=== PATIENT | male | born 1970 | race Caucasian/White ===

== ENCOUNTER 2020-03-28 20:41 | Day surgery (SDC) | payer BC ==
[~2020-03-28] VITALS: Ht 170.2 cm; Wt 88.0 kg
[2020-03-28] MEDS ORDERED: SODIUM CHLORIDE 0.9% 1000ML 1,000 ML IV STA ×2 (21:33→21:37)
--- NOTE | 2020-03-28 21:37 | Emergency Department Note ---
History of Present Illnes History of Present Illness Chief Complaint: General Medicine Complaints History of Present Illness This is a 49 year old male 2 day h/o exhaustion and fevers . Denies CP, cough, SOB. Patient with myalgias that started 03/26/20 and was treated for "heat exhaustion". Per family , patient experienced low grade fevers and since seeing PCP earlier in the week, patient continued to experience malaise. Sent by Dr Cheryl Spann for evaluation of possible "sepsis". Historian: Patient, Family Member Arrival Mode: [employer] Required: No Onset (how long ago): day(s) (3) Location: diffuse myalgias Radiation: Reports non-radiation Severity: moderate Onset quality: gradual Duration (how long): day(s) (3) Timing of current episode: constant Progression: worsening Chronicity: new Context: Reports recent illness Relieving factors: none Exacerbating factors: none Associated symptoms: Reports fever/chills, Reports malaise, Reports weakness Treatments prior to arrival: none Past Medical/Family History Physician Review I have reviewed the patient's past medical and family history. Any updates have been documented here. Past Medical History Recent Fever: No Clinical Suspicion of Infectio: No New/Unexplained Change in Ment: No Past Medical History: None Past Surgical History: None Social History Smoking Cessation: Never Smoker Alcohol Use: None Any Illegal Drug Use: No Review of Systems Review of Systems Constitutional: Reports fever, Reports malaise, Reports weakness EENTM: Reports no symptoms Cardiovascular: Reports no symptoms Respiratory: Reports no symptoms Gastrointestinal: Reports no symptoms Genitourinary: Reports no symptoms Musculoskeletal: Reports muscle pain Integumentary: Reports no symptoms Neurological: Reports no symptoms Psychological: Reports no symptoms Endocrine: Reports no symptoms Hematological/Lymphatic: Reports no symptoms Review of other systems All other systems reviewed and negative. Physical Exam Related Data Allergies: Coded Allergies: iodine (Verified Allergy, Unknown, 03/28/20) Uncoded Allergies: DYE (Allergy, Unknown, 03/28/20) Triage Vital Signs Vital Signs Date Time Temp Pulse Resp B/P (MAP) Pulse Ox O2 Delivery O2 Flow Rate FiO2 03/28/20 21:33 99.0 96 20 106/74 97 Vital signs reviewed: Yes Physical Exam CONSTITUTIONAL Constitutional: Reports well-developed, Reports well-nourished HENT HENT: Reports normocephalic, Reports atraumatic, Reports oropharynx clear/moist, Reports nose normal HENT L/R: Reports left ext ear normal, Reports right ext ear normal EYES Eyes: Reports PERRL, Reports conjunctivae normal NECK Neck: Reports ROM normal PULMONARY Pulmonary: Reports effort normal, Reports breath sounds normal CARDIOVASCULAR Cardiovascular: Reports regular rhythm, Reports heart sounds normal, Reports capillary refill normal, Reports normal rate GASTROINTESTINAL Abdominal: Reports soft, Reports nontender, Reports bowel sounds normal GENITOURINARY Genitourinary: Reports exam deferred SKIN Skin: Reports warm, Reports dry MUSCULOSKELETAL Musculoskeletal: Reports ROM normal NEUROLOGICAL Neurological: Reports alert, Reports oriented x 3, Reports no gross motor or sensory deficits PSYCHOLOGICAL Psychological: Reports mood/affect normal, Reports judgement normal Results Laboratory Laboratory Laboratory Tests Test 03/29/20 00:09 03/28/20 23:25 03/28/20 22:00 03/28/20 21:58 Activated Partial Thromboplast Time 33.2 seconds (23.8-35.5) Lactic Acid Level 1.5 mmol/L (0.5-2.0) Urine Color Straw (YELLOW) Urine Clarity Sl cloudy (CLEAR) Urine pH 6 (5 - 7) Urine Specific [place] 1.015 (1.010-1.025) Urine Protein Negative (NEGATIVE) Urine Glucose (UA) Negative (NEGATIVE) Urine Ketones Negative (NEGATIVE) Urine Blood Moderate (NEGATIVE) Urine Nitrite Negative (NEGATIVE) Urine Bilirubin Negative (NEGATIVE) Urine Urobilinogen 0.2 mg/dL (0.2 - 1) Urine Leukocyte Esterase Negative (NEGATIVE) Urine RBC 0-5 /HPF (0-5) Urine WBC None /HPF (0-5) Urine Epithelial Cells None /LPF (NONE) Urine Bacteria Few /HPF (NONE) Test 03/28/20 21:43 White Blood Count 20.26 x10e3/uL (4.8-10.8) Red Blood Count 4.30 x10e6/uL (4.3-5.7) Hemoglobin 13.3 g/dL (14.0-18.0) Hematocrit 39.8 % (38.2-49.6) Mean Corpuscular Volume 92.6 fL (81-99) Mean Corpuscular Hemoglobin 30.9 pg (28-32) Mean Corpuscular Hemoglobin Concent 33.4 g/dL (31-35) Red Cell Distribution Width 12.5 % (11.7-14.4) Platelet Count 223 x10e3/uL (140-360) Neutrophils (%) (Auto) 75.0 % (38.7-80.0) Lymphocytes (%) (Auto) 13.7 % (18.0-39.1) Monocytes (%) (Auto) 10.4 % (4.4-11.3) Eosinophils (%) (Auto) 0.2 % (0.0-6.0) Basophils (%) (Auto) 0.3 % (0.0-1.0) Neutrophils # (Auto) 15.2 (2.1-6.9) Lymphocytes # (Auto) 2.8 (1.0-3.2) Monocytes # (Auto) 2.1 (0.2-0.8) Eosinophils # (Auto) 0.0 (0.0-0.4) Basophils # (Auto) 0.1 (0.0-0.1) Absolute Immature Granulocyte (auto 0.09 x10e3/uL (0-0.1) Prothrombin Time 14.6 seconds (11.9-14.5) Prothromb Time International Ratio 1.07 Sodium Level 135 mmol/L (136-145) Potassium Level 3.7 mmol/L (3.5-5.1) Chloride Level 102 mmol/L (98-107) Carbon Dioxide Level 21 mmol/L (22-29) Anion Gap 15.7 mmol/L (8-16) Blood Urea Nitrogen 14 mg/dL (7-26) Creatinine 1.19 mg/dL (0.72-1.25) Estimat Glomerular Filtration Rate > 60 ML/MIN (60-) BUN/Creatinine Ratio 12 (6-25) Glucose Level 106 mg/dL (74-118) Calcium Level 9.1 mg/dL (8.4-10.2) Total Bilirubin 1.4 mg/dL (0.2-1.2) Aspartate Amino Transf (AST/SGOT) 333 IU/L (5-34) Alanine Aminotransferase (ALT/SGPT) 89 IU/L (0-55) Alkaline Phosphatase 47 IU/L (40-150) Creatine Kinase 1241 IU/L (30-200) Creatine Kinase MB 52.90 ng/mL (0-5.0) Troponin I 137.347 ng/mL (0-0.300) B-Type Natriuretic Peptide 459.4 pg/mL (0-100) Total Protein 7.7 g/dL (6.5-8.1) Albumin 3.6 g/dL (3.5-5.0) Globulin 4.1 g/dL (2.3-3.5) Albumin/Globulin Ratio 0.9 (0.8-2.0) Lipase 33 U/L (8-78) Lab results reviewed: Yes Imaging Imaging results reviewed: Yes Impressions [facility] [address] [place] [address] Patient Name: CHADD HOBBS II MR #: [id number] : 1970 Age/Sex: 49/M Req #: [id number] Adm Physician: Ordered by: CHADD GARCIA DO Report #: [id number] Location: ER Room/Bed: Procedure: [id number] DX/CHEST SINGLE (PORTABLE) Exam Date: 03/28/20 Exam Time: 2257 REPORT STATUS: Signed EXAMINATION: CHEST SINGLE (PORTABLE) INDICATION: ^Y ^ERMD ORDER ^[id number] ^2258 ^Y COMPARISON: None FINDINGS: AP view TUBES and LINES: None. LUNGS: Lungs are well inflated. There is no evidence of pneumonia or pulmonary edema. PLEURA: No pleural effusion or pneumothorax. HEART AND MEDIASTINUM: The cardiomediastinal silhouette is unremarkable. BONES AND SOFT TISSUES: No acute osseous lesion. Soft tissues are unremarkable. UPPER ABDOMEN: No free air under the diaphragm. IMPRESSION: No acute thoracic abnormality. Signed by: Dr. Sree Leong MD on 03/28/2020 11:31 PM Dictated By: SREE LEONG MD [id number] Transcribed By: STONE on 03/28/202330 COPY TO: CHADD GARCIA DO~ Procedures 12 Lead ECG Interpretation ECG Interpretation : ECG: ECG 1 Date: Mar 28, 2020 Time: 22:44 Prior ECG tracings: reviewed Rhythm: sinus rhythm Rate: normal BPM: 94 QRS axis: normal ST segment elevation: V4, V5, V6 T waves normal: Yes Clinical Impression: abnormal ECG Critical Care Time Total Critical Care Time (min): 40 Critcal care necessary due to: cardiac failuer Critcal care time spent by me: develop tx plan w patient/surrogate, discussion w consultants, discussion w primary provider, evaluation patient response to tx, examination of patient, obtaining hx from patient/surrogate, order/perform tx or interventions, order/review laboratory studies, order/review radiographic studies, re-evaluation of patient condition Assessment & Plan Medical Decision Making MDM Patient presents with generalized weakness, myalgias, and low grade fever. patient seen at bedside hemodynamically stable without CP. EKG reviewed at 22:[address] Dr Marilyn Martin contacted at 22:52 and based on EKG pattern and elevated troponins that patient had an infarction. Per Dr martin, no indication for CODE STEMI. Case d/w Dr Benjamin Silvestre at 22:56, concensus that patient had an injury pattern consistent with myocardial infarction and agrees that no indication for Code STEMI. STAT Echocardiogram ordered and Dr Silvestre graciously saw patient at bedside. Echo images reviewed and cardiac catheterization team called for further evaluation of coronary arterial disease. Patient with triple vessel disease and plan to transfer patient ; patient to be evaluated for surgical evaluation for occluded coronary arteries Assessment & Plan Final Impression: (1) Myocardial infarction (2) Rhabdomyolysis (3) Leukocytosis Depart Disposition: TRANS TO OTHER [facility] Medications in the ED Sodium Chloride 1,000 ml @ 0 mls/hr Q0M STAT IV Last administered on 03/28/20at 21:54; Admin Dose 999 MLS/HR; Start 03/28/20 at 21:33; Stop 03/28/20 at 21:37; Status DC Sodium Chloride 1,000 ml @ 0 mls/hr Q0M STAT IV Last administered on 03/28/20at 22:09; Admin Dose 999 MLS/HR; Start 03/28/20 at 21:37; Stop 03/28/20 at 21:38; Status DC Sodium Chloride 1,000 ml @ ud STK-MED ONCE .ROUTE ; Start 03/28/20 at 21:45; Stop 03/28/20 at 21:40; Status DC Piperacillin Sod/ Tazobactam Sod 50 ml @ 50 mls/hr Q6H IV Last administered on 03/28/20at 23:23; Admin Dose 50 MLS/HR; Start 03/29/20 at 00:00; Stop 04/05/20 at 00:00 Ondansetron HCl 4 mg Q4H PRN IV NAUSEA AND VOMITING; Start 03/28/20 at 22:45; Stop 04/27/20 at 22:44 Sodium Chloride 1,000 ml @ 125 mls/hr Q8H IV Last administered on 03/28/20at 23:23; Admin Dose 125 MLS/HR; Start 03/28/20 at 22:45; Stop 04/27/20 at 22:44 Morphine Sulfate 4 mg Q4H PRN IV SEVERE PAIN (7-10); Start 03/28/20 at 23:00; Stop 04/04/20 at 22:59 Aspirin 81 mg PRN ONCE PO Last administered on 03/28/20at 23:09; Admin Dose 81 MG; Start 03/28/20 at 22:45; Stop 03/28/20 at 22:47; Status DC Heparin Sodium (Porcine) 4,000 unit ONCE ONCE IV Last administered on 03/28/20at 23:45; Admin Dose 4,000 UNIT; Start 03/28/20 at 23:15; Stop 03/28/20 at 23:30; Status DC Heparin Sodium/ Dextrose 69394 unit/Dextrose 250 ml @ 9 mls/hr TITRATE IV Last administered on 03/28/20at 23:40; Admin Dose 9 MLS/HR; Start 03/28/20 at 23:15; Stop 04/04/20 at 23:14 Heparin Sodium/ Dextrose 25,000 unit STK-MED ONCE IV ; Start 03/28/20 at 23:45; Stop 03/28/20 at 23:39; Status DC CHADD GARCIA 9, 2020 21:36
[2020-03-28] MEDS ORDERED: SODIUM CHLORIDE 0.9% 1000ML 1,000 ML ONE (21:45)
[2020-03-28 22:02] LABS: BASOPHILS # (AUTO) 0.1 (0.0-0.1); BASOPHILS % 0.3 % (0.0-1.0); EOSINOPHILS % 0.2 % (0.0-6.0); HEMATOCRIT 39.8 % (38.2-49.6); HEMOGLOBIN 13.3 g/dL (14.0-18.0); LYMPHOCYTES # (AUTO) 2.8 (1.0-3.2); LYMPHOCYTES % 13.7 % (18.0-39.1); MEAN CORPUSCULAR HEMOGLOBIN 30.9 pg (28-32); MEAN CORPUSCULAR HGB CONC 33.4 g/dL (31-35); MEAN CORPUSCULAR VOLUME 92.6 fL (81-99); MONOCYTES # (AUTO) 2.1 (0.2-0.8); MONOCYTES % 10.4 % (4.4-11.3); NEUTROPHILS # (AUTO) 15.2 (2.1-6.9); PLATELET COUNT 223 x10e3/uL (140-360); RED CELL DISTRIBUTION WIDTH 12.5 % (11.7-14.4)
[2020-03-28 22:13] LABS: CLARITY,URINE SL CLOUDY (CLEAR); LEUKOCYTE ESTERASE ,URINE NEGATIVE (NEGATIVE); NITRITE,URINE NEGATIVE (NEGATIVE)
[2020-03-28 22:14] LABS: BILIRUBIN,URINE NEGATIVE (NEGATIVE); COLOR,URINE STRAW (YELLOW); KETONES,URINE NEGATIVE (NEGATIVE); PROTEIN,URINE DIPSTICK NEGATIVE (NEGATIVE); URINE UROBILINOGEN 0.2 mg/dL (0.2 - 1)
[2020-03-28 22:20] LABS: ALANINE AMINOTRANSFERASE 89 IU/L (0-55); ALBUMIN 3.6 g/dL (3.5-5.0); ALBUMIN/GLOBULIN RATIO 0.9 (0.8-2.0); ALKALINE PHOSPHATASE 47 IU/L (40-150); ANION GAP 15.7 mmol/L (8-16); BLOOD UREA NITROGEN 14 mg/dL (7-26); BUN/CREATININE RATIO 12 (6-25); CALCIUM 9.1 mg/dL (8.4-10.2); CARBON DIOXIDE 21 mmol/L (22-29); CHLORIDE 102 mmol/L (98-107); CREATINE KINASE 1241 IU/L (30-200); CREATININE, SERUM 1.19 mg/dL (0.72-1.25); EST GLOMERULAR FILTRATION RATE > 60 ML/MIN (60-); GLUCOSE 106 mg/dL (74-118); LIPASE 33 U/L (8-78); POTASSIUM 3.7 mmol/L (3.5-5.1); SODIUM 135 mmol/L (136-145)
[2020-03-28 22:26] LABS: BACTERIA,URINE FEW /HPF; RBC,URINE 0-5 /HPF (0-5)
[2020-03-28] MEDS ORDERED: SODIUM CHLORIDE 0.9% 1000ML 1,000 ML IV SCH (22:45)
[2020-03-28] MEDS ORDERED: ASPIRIN 81 MG CHEW TAB PO ONE (22:45)
[2020-03-28] MEDS ORDERED: ONDANSETRON HCL INJ 2MG/ML 2ML 2 MG/ML VIAL IV PRN (22:45)
--- NOTE | 2020-03-28 22:50 | NUR ---
defib pads applied to patient per dr mayer orders.
[2020-03-28] MEDS ORDERED: MORPHINE SULFATE INJ 4 MG/ML INJ 1ML IV PRN (23:00)
[2020-03-28] MEDS ORDERED: HEPARIN SOD (PORCINE) 5,000 UNIT/ML VIAL IV ONE (23:15)
[2020-03-28] MEDS ORDERED: HEPARIN 25,000 UNIT 25,000 UNIT in DEXTROSE 5% 250ML 0 ML IV SCH (23:15)
--- NOTE | 2020-03-28 23:35 | Diagnostic Imaging Report ---
EXAMINATION: CHEST SINGLE (PORTABLE) INDICATION: ^Y ^ERMD ORDER ^[id number] ^2258 ^Y COMPARISON: None FINDINGS: AP view TUBES and LINES: None. LUNGS: Lungs are well inflated. There is no evidence of pneumonia or pulmonary edema. PLEURA: No pleural effusion or pneumothorax. HEART AND MEDIASTINUM: The cardiomediastinal silhouette is unremarkable. BONES AND SOFT TISSUES: No acute osseous lesion. Soft tissues are unremarkable. UPPER ABDOMEN: No free air under the diaphragm. IMPRESSION: No acute thoracic abnormality. Signed by: Dr. Sree Chacon MD on 03/28/2020 11:31 PM
[2020-03-28 23:45] LABS: INR 1.07; PROTHROMBIN TIME 14.6 seconds (11.9-14.5)
[2020-03-28] MEDS ORDERED: HEPARIN 25,000 UNIT DRIP IV ONE (23:45)
--- NOTE | 2020-03-28 23:47 | NUR ---
code stemi called by dr mayer
--- OUTSIDE RECORDS SUMMARY | 2020-03-28 23:54 | XMS REPORT | Continuity of Care Document ---
Author Author [facility] t Organization [facility] Address [address] [place] [address] Phone Unavailable Care Team Providers Care Colleter Name Role Phone RADHA CHADD Brown Unavailable Problems This patient has no known problems. Allergies, Adverse Reactions, Alerts This patient has no known allergies or adverse reactions. Medications This patient has no known medications. Procedures This patient has no known procedures. Results Test Description Test Time Test Comments Results Result Comments Source CHEST SINGLE (PORTABLE) 2020-03-28 23:31:00 [place] [address] Patient Name: CHADD HOBBS II MR #: [id number] : 1970 Age/Sex: 49/M Req #: [id number] Adm Physician: Ordered by: CHADD GARCIA DO Report #: [id number] Location: ER Room/Bed: Procedure: [id number] DX/CHEST SINGLE (PORTABLE) Exam Date: 03/28/20 Exam Time: 2257 REPORT STATUS: Signed EXAMINATION: CHEST SINGLE (PORTABLE) INDICATION: Y ERMD ORDER [id number] 2257 Y COMPARISON: None FINDINGS: AP view TUBES and LINES: None. LUNGS: Lungs are well inflated. There is no evidence of pneumonia or pulmonary edema. PLEURA: No pleural effusion or pneumothorax. HEART AND MEDIASTINUM: The cardiomediastinal silhouette is unremarkable. BONES AND SOFT TISSUES: No acute osseous lesion. Soft tissues are unremarkable. UPPER ABDOMEN: No free air under the diaphragm. IMPRESSION: No acute thoracic abnormality. Signed by: Dr. Sree Leong MD on 03/28/2020 11:31 PM Dictated By: SREE LEONG MD 30 Transcribed By: STONE on 03/28/202330 COPY TO: CHADD GARCIA DO
[2020-03-29] MEDS ORDERED: PIPER-TAZ 3.375 GM 50 ML IV SCH
--- NOTE | 2020-03-29 00:13 | NUR ---
bilateral groins shaved per dr mayer
[2020-03-29] MEDS ORDERED: FAMOTIDINE 20 MG/2 ML VIAL IV STA (00:28)
[2020-03-29] MEDS ORDERED: METHYLPREDNISOLONE SOD SUCC 125 MG/2ML VIAL IV ONE (00:30)
[2020-03-29] MEDS ORDERED: DIPHENHYDRAMINE HCL INJ 50 MG/ML VIAL IV ONE (00:30)
[2020-03-29] MEDS ORDERED: HEPARIN SOD (PORCINE) 1000 UNIT/ML 30ML ONE (00:35)
[2020-03-29] MEDS ORDERED: BIVALRIUDIN 250 MG/VIAL VIAL IV ONE (00:35)
[2020-03-29] MEDS ORDERED: MIDAZOLAM HCL 2 MG/2 ML VIAL ONE (00:35)
[2020-03-29] MEDS ORDERED: SODIUM CHLORIDE 0.9% 1000ML 1,000 ML ONE (00:36)
[2020-03-29] MEDS ORDERED: NITROGLYCERIN/D5W 200 MCG/ML 250 ML ONE (00:36)
[2020-03-29] MEDS ORDERED: SODIUM CHLORIDE 0.9% 50ML 0 ML ONE (00:36)
[2020-03-29] MEDS ORDERED: IOPAMIDOL 370 MG/ML 200 ML INFUS..BTL INJ ONE (00:36)
[2020-03-29] MEDS ORDERED: FENTANYL CITRATE/PF 100MCG/2 ML INJ ONE (00:36)
[2020-03-29] MEDS ORDERED: LIDOCAINE HCL 2% LOCAL 20 ML VIAL ONE (00:36)
[2020-03-29] MEDS ORDERED: HEPARIN SOD/SOD CHLORIDE 2,000 ML ONE (00:36)
[2020-03-29] MEDS ORDERED: VERAPAMIL HCL 2.5 MG/ML 2 ML VIAL ONE (00:40)
--- NOTE | 2020-03-29 00:49 | NUR ---
pt to [employer] at this time. bedside report to [employer] nurse at this time.
[2020-03-29 00:50] VITALS: BP 117/83
--- NOTE | 2020-03-29 00:53 | NUR ---
dr martin informed that family requested dr gomez for cardiology consult.
--- NOTE | 2020-03-29 03:16 | Consultation ---
DATE OF CONSULTATION: 03/28/2020 Cardiology Consultation REASON FOR CONSULTATION: Elevated troponin. HISTORY OF PRESENT ILLNESS: Mr. Miller is a 49-year-old healthy gentleman with no medical problems. He was surfing in [place] 3 days prior to his ER visit, started feeling weak with diffuse pain in his chest, arm and entire body along with nausea and vomiting. He felt he had a heat stroke. He was seen by his primary care physician, Dr. Spann. He had labs drawn, which showed elevated CK consistent with rhabdomyolysis. However, he continued to feel febrile, came into the emergency room. His cardiac troponin at the time of admission was 137. CPKs in excess of 1000 with marked elevation of CK-MB fraction. Electrocardiogram shows large anteroseptal myocardial infarction. PAST MEDICAL HISTORY: None. SOCIAL HISTORY: The patient does not smoke or drink. 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 FAMILY HISTORY: Not contributory. REVIEW OF SYSTEMS: Negative except as dictated in the history of present illness. PHYSICAL EXAMINATION: VITAL SIGNS: Temperature is 100.2, heart rate 110, blood pressure is 108/60, O2 saturations 94%. CARDIOVASCULAR: Regular rhythm. No murmurs, S3 gallop. Jugular venous pulses 15. LUNGS: Fine crackles at the bases bilaterally. Pedal pulses are 2+. No edema. ABDOMEN: Soft. NEUROLOGIC: Nonfocal. The patient is alert and in mild distress. DIAGNOSTIC DATA: Electrocardiogram, labs were reviewed and are described above. ASSESSMENT: 1. Subacute anterior wall myocardial infarction. 2. Acute systolic heart failure. 3. Cardiogenic shock. RECOMMENDATIONS: Urgent coronary angiography will be performed to evaluate coronary status. The patient has been started on intravenous heparin. Cautious initiation of beta-abbey given marginal hemodynamics status. The patient may require left ventricular support and higher level of care. Overall prognosis is guarded. Extensive discussion with the patient as well as his . Coronary angiography is indicated. Risks, benefits, and alternatives of this procedure were discussed with the patient as well as his , and they are agreeable to the same. I thank Dr. Spann for this consultation. MD RAMIRO Brito/JUNIOR /[id number]
--- NOTE | 2020-03-29 03:41 | Operative Report ---
DATE OF PROCEDURE: 03/29/2020 SURGEON: Heath Silvestre MD INDICATION: ST-elevation myocardial infarction. PROCEDURES PERFORMED: 1. Conscious sedation 35 minutes. 2. Left heart catheterization, selective coronary angiography. 3. Deployment of right wrist TR band. COMPLICATIONS: None. RECOMMENDATIONS: Emergent transfer for high-level care and advanced heart failure therapies to [facility]. ESTIMATED BLOOD LOSS: Minimal. DESCRIPTION OF PROCEDURE: Access was obtained in the right radial artery. A 6-Icelandic sheath was placed. Coronary angiography demonstrated 50-60% eccentric mid left main stenosis. Circumflex had mild disease. Left anterior descending artery was occluded completely in its proximal portion with thrombus. Right coronary artery mid 90% stenosis. LV end-diastolic pressure of 24. No gradient across the aortic valve on pullback. No intervention deemed necessary. Discussion with surgeon for consideration for coronary bypass surgery as well as viability study of the anterior wall of the left ventricle. Right wrist TR band applied. The patient transferred to the [facility] as described above. Heath Silvestre MD KSB/MODL /[id number]
== END 2020-03-29 | disposition short-term general hospital (02) ==
LOC: ER 20:41 → ERHOLD 22:42 → UNDOADMIN 22:42 → CATH LAB 03-29 00:26
PROVIDERS: ATTEND Internal Medicine Interventional Cardiology
DX: I21.09 ST elevation (STEMI) myocardial infarction involving other coronary artery of anterior wall (principal); I25.119 Atherosclerotic heart disease of native coronary artery with unspecified angina pectoris; I50.21 Acute systolic (congestive) heart failure; R57.0 Cardiogenic shock
CPT/HCPCS: 36415 ×2; 71045; 80053; 81001; 82550; 82553; 83605; 83690; 83880; 84484; 85025; 85610; 85730; 87040; 87635; 93005; 93306; 93454; 99284; C1887; J1200; J1644 ×2; J2001; J2250; J2543; J2930; J3010; J7030 ×2; Q9967; 99152; 99153; J0583; J2270; J2405

== ENCOUNTER → 2020-08-11 | Day surgery (SDC) | payer BC, OTHER ==
[2020-08-07 11:37] LABS: BASOPHILS % 0.6 % (0.0-1.0); EOSINOPHILS # (AUTO) 0.2 (0.0-0.4); EOSINOPHILS % 2.9 % (0.0-6.0); HEMATOCRIT 39.6 % (38.2-49.6); HEMOGLOBIN 13.2 g/dL (14.0-18.0); LYMPHOCYTES # (AUTO) 2.6 (1.0-3.2); LYMPHOCYTES % 39.1 % (18.0-39.1); MEAN CORPUSCULAR HEMOGLOBIN 29.7 pg (28-32); MEAN CORPUSCULAR HGB CONC 33.3 g/dL (31-35); MONOCYTES # (AUTO) 0.4 (0.2-0.8); MONOCYTES % 6.6 % (4.4-11.3); NEUTROPHILS # (AUTO) 3.4 (2.1-6.9); NEUTROPHILS % 50.6 % (38.7-80.0); PLATELET COUNT 205 x10e3/uL (140-360); RED BLOOD COUNT 4.45 x10e6/uL (4.3-5.7); RED CELL DISTRIBUTION WIDTH 13.3 % (11.7-14.4)
[2020-08-07 11:55] LABS: INR 1.07; PROTHROMBIN TIME 14.4 seconds (11.9-14.5)
[2020-08-07 11:58] LABS: ANION GAP 12.3 mmol/L (8-16); BLOOD UREA NITROGEN 12 mg/dL (7-26); BUN/CREATININE RATIO 11 (6-25); CALCIUM 9.1 mg/dL (8.4-10.2); CARBON DIOXIDE 26 mmol/L (22-29); CHLORIDE 107 mmol/L (98-107); EST GLOMERULAR FILTRATION RATE > 60 ML/MIN (60-); GLUCOSE 86 mg/dL (74-118); POTASSIUM 4.3 mmol/L (3.5-5.1); SODIUM 141 mmol/L (136-145)
--- NOTE | 2020-08-10 17:14 | NUR ---
left arrival time and NPO status on phone number provided. will attempt to call back in 90 minutes.
[~2020-08-11] VITALS: Ht 170.2 cm; Wt 79.4 kg
[2020-08-11] VITALS (9 sets, daily range): BP systolic 100–115; BP diastolic 50–77
[~2020-08-11] MED LIST: ACETAMINOPHEN 325 MG TAB ONE; ASPIRIN81 MG PO; CEFAZOLIN SOD 1 GM VIAL ONE; CRESTOR10 MG PO; DIPHENHYDRAMINE HCL INJ 50 MG/ML VIAL ONE; ELIQUIS5 M1 PO; FAMOTIDINE 20 MG/2 ML VIAL IV ONE; FENTANYL CITRATE/PF 100MCG/2 ML INJ ONE; LIDOCAINE 1% W/EPINEPHRINE 20 ML VIAL ONE; LOSARTAN POTASS25 MG PO; METHYLPREDNISOLONE SOD SUCC 125 MG/2ML VIAL ONE; METOPROLOL SUCC25 MG PO; MIDAZOLAM HCL 2 MG/2 ML VIAL ONE; SODIUM CHLORIDE 0.9% 1000ML 2,000 ML ONE; SODIUM CHLORIDE 0.9% 500ML 500 ML ONE; SODIUM CHLORIDE 0.9% 50ML 50 ML ONE; VANCOMYCIN 1GM/NS 250 ML 0 ML ONE; [UNRECOGNIZED DRUG - OTHER] TP ONE
--- NOTE | 2020-08-11 10:57 | NUR ---
1058d Bedside report received from CARON Flores.Identiferx2. Alert oriented and appropriate, PERRLA, respirations even and unlabored to room air. Pulses x4 extremeties equal and strong. Pedal pulses PT/DP X4 . Cap fill brisk < 3 sec.Left lateral [employer] Icd lateral approach. Life vest given back to .Sinus nayana Rep.Darling from [employer] here for bedside teaching of device and module to pt and . Skin warm and dry integrity appears D/I. IV 20g to left hand, presents healthy w/o s/s of infiltration or complaint. Abdomen soft and supple. pt offered toileting, denies need to urinate or defecate. has personal affects Family here till dc approx 2pm Pt and family verbalizes understanding of POC. Currently w/o complaint of pain or need. No gross issues pain,pallor pressure or dysrhythmia ds/rn -
--- NOTE | 2020-08-11 13:10 | NUR ---
1310p c/o 12/27 lateral incisional pain, Josh Santos Rn obtained verbal order for 975 Tylenol pt due for dc at 1400pm pt has prescription form tramadol prn pain and antibiotics ds/rn 1325p obtained medication from pharmacy given po Tylenol 975mg. remains at bedside Vs stabale. No gross issues pain pallor pressure or dysrhythmia ds/rn
--- NOTE | 2020-08-11 13:50 | NUR ---
1350p disregard note: Chart Error documentation ds/rn
--- NOTE | 2020-08-11 13:50 | NUR ---
1350pm CONDUCTOR FREIGHT RECIEVING NOTE: Procedure type LHC/RHC RT TR Band and Rt Groin manual pull down till 535pm.No gross issues pain pallor pressure or dysrthmia. Received pt to rm # [id number],Identiferx2. Report from CARON Flores.Ox4, Back to baseline orientation. Sleepy but responsive to verbal stimuli.Respiration shallow and regular on room air. V/S stable Monitor stable 80's HR. Extremities equal and strong. Pedal pulses PT not presence and marked. DP Doppler.Cap fill brisk < 3 sec. Procedural access TR-band site/rt groin site. Skin warm and dry integrity appears D/I. IV 20g left ac , presents healthy w/o s/s of infiltration or complaint. Abdomen soft and supple. pt offered toileting, denies need to urinate wick in place. defecate. No personal affects with patient. Family in room. TR band to be removed and then transport back to floor care. Currently w/o complaint of pain or need. radha/caron
--- NOTE | 2020-08-11 14:00 | NUR ---
1400p Pt meets DC criteria. left chest and lower chest dressing pacer insert site assessed for s/s of complication and presequence of hematoma. Skin warm, dry, no discolor, and pulses present. IV removed from left hand. Distal tip appears intact. VS WNL. Pt denies pain, sob, or need at this time. Family at XXXXX. Review of discharge paperwork and follow up instructions. verbalized understanding. Pt to wheelchair and transported to front of hospital. Transferred to private vehicle under own strength w/o incident with DC paperwork in hand.Pt describes incisional pain 10/29 - ds/rn
--- NOTE | 2020-08-11 23:44 | Operative Report ---
DATE OF PROCEDURE: 08/11/2020 SURGEON: Gerry Soliz MD PREPROCEDURE DIAGNOSES: 1. 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 2. History of myocardial infarction. 3. Congestive heart failure class 2. 4. History of coronary bypass surgery more than three months ago. POSTPROCEDURE DIAGNOSES: 1. 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 2. History of myocardial infarction. 3. Congestive heart failure class 2. 4. History of coronary bypass surgery more than three months ago. ESTIMATED BLOOD LOSS: 10 mL. COMPLICATIONS: None. PROCEDURES PERFORMED: 1. Subcutaneous cardiac defibrillator placement. 2. Moderate sedation. Moderate conscious sedation was provided under my direct supervision by sedation trained nurse. Sedation approximate time 45 minutes, Versed and fentanyl. There were no complications. See sedation form for details. DESCRIPTION OF PROCEDURE: After informed consent was obtained, the patient was brought to the electrophysiology laboratory in a fasting and nonsedated state. Area over his chest was prepped and draped in the usual sterile fashion. Moderate sedation and prophylactic antibiotics were given. A 4 cm skin incision was made in the 6th intercostal space, left anterior axillary line. Electrocautery sharp and blunt dissection were used to bridge the muscular fascia and a pocket was created for event implantation of the device. A second incision was performed in the size for the area again to reach the fascia. The lead was advanced from the lateral incision to the mid incision and then toenailed cranially next to the sternum. Then the lead was secured to fascia in the mid incision and then was connected in the lateral incision to the device. Both pockets were irrigated using the pulse ship cleaner. Hemostasis was meticulous. The lead connected to the device and entire device system placed in the lateral pocket. Incision was closed using absorbable sutures and Dermabond. The patient tolerated the procedure well. Procedure was incomplete. SUMMARY OF HARDWARE IMPLANTED: 1. The new defibrillator is [employer], serial #[id number]. 2. Defibrillator lead is [employer], #[id number]. IMPRESSION: Successful subcutaneus cardiac defibrillator placement. PLAN: Routine postop monitoring on telemetry. Follow up in two weeks. MD ESEQUIEL Trinh/THOMASL /[id number]
== END | disposition home or self-care (01) ==
LOC: CATH LAB 07:56 → EDSTATUS 13:00
PROVIDERS: ATTEND Internal Medicine
DX: I25.5 Ischemic cardiomyopathy (principal); I25.2 Old myocardial infarction; I50.22 Chronic systolic (congestive) heart failure; I25.810 Atherosclerosis of coronary artery bypass graft(s) without angina pectoris; Z91.041 Radiographic dye allergy status; Z01.812 Encounter for preprocedural laboratory examination; Z11.59 Encounter for screening for other viral diseases; Z79.02 Long term (current) use of antithrombotics/antiplatelets; Z79.82 Long term (current) use of aspirin; Z68.34 Body mass index [BMI] 34.0-34.9, adult; Z95.1 Presence of aortocoronary bypass graft; Z86.718 Personal history of other venous thrombosis and embolism; Z82.49 Family history of ischemic heart disease and other diseases of the circulatory system; Z82.3 Family history of stroke
CPT/HCPCS: 33271; 36415; 80048; 85025; 85610; C1722; C1896; J0690; J2250; J3010; J7030; J7040; U0002; 33270; 99152; 99153; J1200; J2930; J3370

== ENCOUNTER 2021-06-17 19:12 | Emergency (ER) | payer BC ==
[~2021-06-17] VITALS: Ht 170.2 cm; Wt 81.6 kg
[~2021-06-17 19:12] MED LIST changes: -ACETAMINOPHEN 325 MG TAB ONE; -CEFAZOLIN SOD 1 GM VIAL ONE; -DIPHENHYDRAMINE HCL INJ 50 MG/ML VIAL ONE; -FAMOTIDINE 20 MG/2 ML VIAL IV ONE; -FENTANYL CITRATE/PF 100MCG/2 ML INJ ONE; -LIDOCAINE 1% W/EPINEPHRINE 20 ML VIAL ONE; -METHYLPREDNISOLONE SOD SUCC 125 MG/2ML VIAL ONE; -MIDAZOLAM HCL 2 MG/2 ML VIAL ONE; -SODIUM CHLORIDE 0.9% 1000ML 2,000 ML ONE; -SODIUM CHLORIDE 0.9% 500ML 500 ML ONE; -SODIUM CHLORIDE 0.9% 50ML 50 ML ONE; -VANCOMYCIN 1GM/NS 250 ML 0 ML ONE; -[UNRECOGNIZED DRUG - OTHER] TP ONE
[2021-06-17] MEDS: AMOXICILLIN/CLAVULANATE K 875 MG TAB PO STA (21:50)
[2021-06-17] MEDS: DIPHTH/TETANUS/ACEL. PERTUSSIS 0.5 ML SYR IM ONE (21:50)
[2021-06-17] MEDS ORDERED: AMOXICILLIN/CLAVULANATE K 875 MG TAB ONE (21:59)
[2021-06-17] MEDS ORDERED: TETANUS/DIPHTHERIA TOX ADULT 0.5 ML SYR ONE (21:59)
[2021-06-17] MEDS ORDERED: CEPHALEXIN500 MG PO (22:01)
[2021-06-17 22:10] VITALS: BP 111/74
== END 2021-06-17 22:10 | disposition home or self-care (01) ==
LOC: FSED 20:30
DX: S81.811A Laceration without foreign body, right lower leg, initial encounter (principal); I25.810 Atherosclerosis of coronary artery bypass graft(s) without angina pectoris; E78.5 Hyperlipidemia, unspecified; Z23 Encounter for immunization; Z91.041 Radiographic dye allergy status; W45.8XXA Other foreign body or object entering through skin, initial encounter; Y93.18 Activity, surfing, windsurfing and boogie boarding; Y92.89 Other specified places as the place of occurrence of the external cause; Y99.8 Other external cause status; Z79.82 Long term (current) use of aspirin; Z79.02 Long term (current) use of antithrombotics/antiplatelets; Z95.1 Presence of aortocoronary bypass graft; Z95.810 Presence of automatic (implantable) cardiac defibrillator
CPT/HCPCS: 90471; 90714; 99283